=== PATIENT | male | born 1950 | race Caucasian/White ===

== ENCOUNTER 2017-11-29 05:56 | Day surgery (SDC) | payer MEDICARE, OTHER ==
[2017-11-29] MEDS ORDERED: Midazolam 1 MG/ML 2 ML SDV IV ONE ×5 (05:57→07:06)
[2017-11-29] MEDS ORDERED: fentaNYL 100 MCG/2 ML SDV IV ONE ×3 (05:57→06:55)
[2017-11-29] MEDS ORDERED: Sodium Chloride 0.9% 10 ML Syringe FLUSH PRN (06:00)
[2017-11-29] MEDS ORDERED: Dextrose 5%-0.45% NaCl 1,000 ML IV SCH (06:00)
[2017-11-29] MEDS ORDERED: fentaNYL 100 MCG/2 ML SDV ONE (06:12)
[2017-11-29] MEDS ORDERED: Midazolam 1 MG/ML 2 ML SDV ONE (06:12)
--- NOTE | 2017-11-29 13:12 | OR ---
DATE: 11/29/2017 PROCEDURE: Total colonoscopy and cold snare polypectomy. INSTRUMENT USED: CF-H180AL Olympus video colonoscope. Olympus distal detachment device. PREMEDICATIONS: Fentanyl 100 mcg intravenous and Versed 3 mg intravenous. Nasal O2 cannula. The procedure was done under pulse oximetry, BP recording, and vp biology. INDICATION: The patient with previous colonic tubular adenoma. Surveillance colonoscopic examination is done for detection of any polypoid lesions and removal, endoscopic hemostasis therapy if needed. DESCRIPTION OF PROCEDURE: Initial rectal exam was unremarkable. Rigid anoscopy showed diminutive benign-appearing polyp. The colonoscope was passed with ease. Photograph was taken of the distal rectum showing diminutive polyp, cold snare polypectomy was done, the tissue was retrieved and sent for histopathology. Numerous scattered diverticula were noted in the distal left colon along with deformity. The scope was passed with ease up to the ileocecal area, photographs were taken of the normal-appearing cecum identified by landmarks of appendiceal orifice and double-bulged ileocecal folds. No bleeding was noted from any of the visualized areas at the commencement of the examination. No stricture. No vascular ectasia. No large isolated ulcerations seen. No evidence of diffuse inflammatory bowel disease in the form of friability, contact bleeding, or ulcerations. Probing the proximal sides of folds and flexures, using adequate distention and clearing of the stool material, withdrawal of the scope was made, cecum to rectum time over 6 minutes. No bleeding was noted from any of the visualized areas at the completion of the examination IMPRESSION: 1. Diminutive rectal polyp. 2. Diverticulosis. The patient tolerated the procedure well. [facility] /[id number]
== END 2017-11-29 09:00 | disposition home or self-care (01) ==
LOC: DL.ENDO 05:56
PROVIDERS: ATTEND Internal Medicine Gastroenterology
DX: Z12.11 Encounter for screening for malignant neoplasm of colon (principal); D12.8 Benign neoplasm of rectum; K57.30 Diverticulosis of large intestine without perforation or abscess without bleeding; E66.09 Other obesity due to excess calories; E78.5 Hyperlipidemia, unspecified; I10 Essential (primary) hypertension; L40.9 Psoriasis, unspecified; Z98.890 Other specified postprocedural states; Z86.010 Personal history of colon polyps; M19.90 Unspecified osteoarthritis, unspecified site
CPT/HCPCS: J2250; J3010; J7042

== ENCOUNTER 2021-02-22 20:29 | Emergency (ER) | payer MEDICARE, OTHER ==
--- NOTE | 2021-02-22 21:27 | EDM.PDOC ---
ED HPI GENERAL MEDICAL PROBLEM - General Chief Complaint: Gastrointestinal Problem Stated Complaint: DIARRHEA,DEHYDRATED Time Seen by Provider: 02/22/21 21:26 Source of Information: Reports: Patient, RN History Limitations: Reports: No Limitations - History of Present Illness INITIAL COMMENTS - FREE TEXT/NARRATIVE: diarrhea 3-4 times per day since Tuesday. Thinks ate bad hamburger, Denied fever chills. No pain no vomiting or nausea. No blood in stool. No abdominal pain or cramping. appetite decreased - Related Data Allergies Allergy/AdvReac Type Severity Reaction Status Date / Time No Known Allergies Allergy Verified 02/22/21 20:42 Home Meds: Home Meds Aspirin [Halfprin] 81 mg PO DAILY 11/24/17 [History] Calcium Carbonate 600 mg PO DAILY 11/24/17 [History] Levothyroxine [Synthroid] 100 mcg PO DAILY 11/24/17 [History] Multivit-Min/Iron Fum/Folic AC [Hngcr-Wfefqcu-Kavxvkyu Tablet] 1 tab PO DAILY 11/24/17 [History] [place]-3/DHA/Epa/Fish Oil [[place]-3 Fish Oil 1,000 MG Sfgl] 1,000 mg PO DAILY 11/24/17 [History] Simvastatin [Zocor] 40 mg PO BEDTIME 11/24/17 [History] Hydrocortisone [Cortizone-10] 1 gm TOP ASDIRECTED PRN 02/22/21 [History] Past Medical History HEENT History: Reports: Impaired Vision, Other (See Below) Other HEENT History: WEARS CORRECTIVE LENS Cardiovascular History: Reports: High Cholesterol, Hypertension Respiratory History: Reports: None Gastrointestinal History: Reports: Colon Polyp, Diverticulosis, Other (See Below) Other Gastrointestinal History: HX OF INGUINAL HERNIA. UMBILICAL HERNIA Genitourinary History: Reports: Other (See Below) Other Genitourinary History: TESTICULAR SWELLING Musculoskeletal History: Reports: Arthritis Neurological History: Reports: Concussion, Other (See Below) Other Neuro History: S/P POST PITUITARY MACROADENOMA SURGERY Psychiatric History: Reports: None Endocrine/Metabolic History: Reports: Obesity/BMI 30+ Hematologic History: Reports: None Immunologic History: Reports: None Oncologic (Cancer) History: Reports: None Dermatologic History: Reports: Eczema, Psoriasis - Infectious Disease History Infectious Disease History: Reports: Chicken Pox - Past Surgical History Head Surgeries/Procedures: Reports: None HEENT Surgical History: Reports: Other (See Below) Other HEENT Surgeries/Procedures: PITUITARY TUMOR REMOVAL Cardiovascular Surgical History: Reports: None Respiratory Surgical History: Reports: None GI Surgical History: Reports: Colonoscopy, Hernia, Inguinal, Other (See Below) Other GI Surgeries/Procedures: STOMACH PUMP IN FOR 14 DAYS IN 1988 Male Surgical History: Reports: Other (See Below) Other Male Surgeries/Procedures: S/P CYSTOURETHROSCOPY Endocrine Surgical History: Reports: Other (See Below) Other Endocrine Surgeries/Procedures: PITUITARY TUMOR REMOVED IN 2007 Neurological Surgical History: Reports: None Musculoskeletal Surgical History: Reports: None Oncologic Surgical History: Reports: None Dermatological Surgical History: Reports: None Social & Family History - Family History Family Medical History: No Pertinent Family History - Tobacco Use Tobacco Use Status *Q: Former Tobacco User Years of Tobacco use: 20 Packs/Tins Daily: 1.5 Used Tobacco, but Quit: Yes Month/Year Tobacco Last Used: 1988 - Caffeine Use Caffeine Use: Reports: Coffee Other Caffeine Use: AVERAGE OF 8 CUPS DAILY IN THE AM - Recreational Drug Use Recreational Drug Use: No ED ROS GENERAL - Review of Systems Review Of Systems: Comprehensive ROS is negative, except as noted in HPI. ED EXAM, GI/ABD - Physical Exam Exam: See Below Exam Limited By: No Limitations General Appearance: Alert, No Apparent Distress Ears: Normal TMs Nose: Normal Inspection Throat/Mouth: Normal Inspection Head: Atraumatic, Normocephalic Neck: Normal Inspection Respiratory/Chest: No Respiratory Distress, Lungs Clear, Normal Breath Sounds Cardiovascular: Regular Rate, Rhythm GI/Abdominal Exam: Normal Bowel Sounds, Soft, Guarding, Rigid, Rebound, Tender, Abnormal Bowel Sounds (hyperactive). No: Distended Back Exam: Normal Inspection Extremities: Normal Inspection, Normal Range of Motion Neurological: Alert, Oriented, Normal Cognition Psychiatric: Normal Affect, Flat Affect Skin Exam: Warm, Normal Color, Rash (eczematous patches ) Course - Vital Signs Last Recorded V/S: Last Vital Signs Temp 96.9 F 02/22/21 23:08 Pulse 70 02/22/21 23:08 Resp 16 02/22/21 23:08 BP 100/50 L 02/22/21 23:08 Pulse Ox 99 02/22/21 23:08 - Orders/Labs/Meds Labs: Laboratory Tests 02/22/21 02/22/21 Range/Units 21:50 21:50 WBC 4.0 L (5.0-10.0) 10^3/uL RBC 5.26 (4.6-6.2) 10^6/uL Hgb 15.2 (14.0-18.0) g/dL Hct 45.7 (40.0-54.0) % MCV 86.9 (80-100) fL MCH 28.9 (27.0-34.0) pg MCHC 33.3 (33.0-35.0) g/dL Plt Count 105 L (150-450) 10^3/uL Neut % (Auto) 49.6 (42.2-75.2) % Lymph % (Auto) 37.6 (20.5-50.1) % [place] % (Auto) 12.4 H (2-8) % Eos % (Auto) 0.2 L (1.0-3.0) % Baso % (Auto) 0.2 (0.0-1.0) % Sodium 135 L (136-145) mmol/L Potassium 3.5 (3.5-5.1) mmol/L Chloride 98 (98-107) mmol/L Carbon Dioxide 27 (21-32) mmol/L Anion Gap 13.5 H (7-13) mEq/L BUN 30 H (7-18) mg/dL Creatinine 1.62 H (0.70-1.30) mg/dL Est Cr Clr Drug Dosing 33.17 mL/min Estimated GFR (MDRD) 42 BUN/Creatinine Ratio 18.5 (No establ ref range) Glucose 86 (70-99) mg/dL Calcium 8.0 L (8.5-10.1) mg/dL Total Bilirubin 0.6 (0.2-1.0) mg/dL AST 60 H (15-37) U/L ALT 61 (16-63) U/L Alkaline Phosphatase 43 L (46-116) U/L Total Protein 6.4 (6.4-8.2) g/dL Albumin 3.2 L (3.4-5.0) g/dL Globulin 3.2 Albumin/Globulin Ratio 1.00 Amylase 59 (25-115) U/L Lipase 368 (73-393) U/L Meds: Medications Discontinued Medications Generic Name Dose Route Start Last Admin Trade Name Freq PRN Reason Stop Dose Admin Sodium Chloride 1,000 mls @ 999 mls/hr 02/22/21 21:39 02/22/21 21:51 Normal Saline IV 02/22/21 22:39 999 mls/hr .BOLUS ONE Administration Departure - Departure Time of Disposition: 22:58 Disposition: Home, Self-Care 01 Condition: Good Clinical Impression: Diarrhea Qualifiers: Diarrhea type: unspecified type Qualified Code(s): R19.7 - Diarrhea, unspecified - Discharge Information *PRESCRIPTION DRUG MONITORING PROGRAM REVIEWED*: No *COPY OF PRESCRIPTION DRUG MONITORING REPORT IN PATIENT ERICKSON: No Instructions: Diarrhea, Adult, [id number] Forms: ED Department Discharge Additional Instructions: immodium per label instructions clinic follow up this week if not improving bland diet low fat continue home medications urgent follow up fever, severe pain, dizziness blood in stool Sepsis Event Note (ED) - Evaluation Sepsis Screening Result: No Definite Risk - Focused Exam Vital Signs: Vital Signs Temp Pulse Resp BP Pulse Ox 02/22/21 23:08 96.9 F 70 16 100/50 L 99 02/22/21 20:54 62 16 107/69 98 02/22/21 20:37 97.6 F 73 16 111/95 H 98
[2021-02-22] MEDS ORDERED: Sodium Chloride 0.9% 1,000 ML IV ONE (21:39)
[2021-02-22 22:20] LABS: ANION GAP 13.5 mEq/L (7-13)
== END 2021-02-22 23:10 | disposition home or self-care (01) ==
LOC: DL.ED 20:29
DX: R19.7 Diarrhea, unspecified (principal); E78.00 Pure hypercholesterolemia, unspecified; I10 Essential (primary) hypertension; Z79.82 Long term (current) use of aspirin; Z79.899 Other long term (current) drug therapy; Z87.891 Personal history of nicotine dependence
CPT/HCPCS: 36415; 80053; 82150; 83690; 85025; 99284; J7030

== ENCOUNTER 2021-03-17 05:27 | Day surgery (SDC) | payer MEDICARE, OTHER ==
[2021-03-17] MEDS ORDERED: fentaNYL 100 MCG/2 ML SDV IV ONE ×3 (05:28→06:37)
[2021-03-17] MEDS ORDERED: Midazolam 1 MG/ML 2 ML SDV IV ONE ×3 (05:28→06:38)
[2021-03-17] MEDS ORDERED: Midazolam 1 MG/ML 2 ML SDV ONE (06:09)
[2021-03-17] MEDS ORDERED: fentaNYL 100 MCG/2 ML SDV ONE (06:09)
[2021-03-17] MEDS ORDERED: Dextrose 5%-0.45% NaCl 1,000 ML IV SCH (06:30)
--- NOTE | 2021-03-17 07:31 | OR ---
DATE: 03/17/2021 PROCEDURE: Esophagogastroduodenoscopy and multiple pinch biopsies. INSTRUMENT USED: GIF-HQ190 Olympus video panendoscope. PREMEDICATIONS: No oral or topical anesthesia used. Fentanyl 100 mcg intravenous, Versed 2 mg intravenous. Nasal O2 cannula. The procedure was done under pulse oximetry, BP recording, and cardiac rehabilitation specialist. INDICATION: The patient with persistent dysphagia, unexplained and not responsive to medical measures, on acid suppressant. Esophagogastroduodenoscopy is performed for detection of any active erosive lesions, Huitron esophagus and/or malignancy also under consideration, H pylori status to be determined, esophageal dilatations if indicated, endoscopic hemostasis therapy if needed. DESCRIPTION OF PROCEDURE: The scope was passed with ease. Adequate visualization of the esophagus was made from proximal to distal areas. No upper esophageal lesions identified. No uphill or downhill esophageal varices. No Sarah-Carrero tear. Grade D erosive changes were noted by [place] criteria. Sliding hiatal hernia was noted. There was some stricture of the distal esophagus, but the tip of the scope was passed with ease to visualize the gastric mucosa. No esophageal polyp or tumor mass identified. No proximal gastric varices noted. Gastric fundus examination by retroflexion showed no polypoid lesions. No gastric ulcer, malignant mass, or vascular ectasia identified. Scattered gastric antral erosions were noted without bleeding from them. Duodenal bulb showed diffuse erythema and prominent benign-appearing folds. Visualized second part of the duodenum was unremarkable. Multiple pinch biopsies were taken from the gastric antrum and proximal body and sent for PyloriTek test for H pylori, and if negative in an hour, the tissues will be sent for histopathology. No bleeding was noted from any of the visualized areas at the completion of examination. Photographs were taken of the duodenal bulb, gastric antrum, fundus, and distal esophagus. IMPRESSION: 1. Grade D gastroesophageal reflux disease. 2. Peptic esophageal stricture. 3. Sliding hiatal hernia. 4. Gastric antral erosions. The patient tolerated the procedure well. [facility] /[id number]
--- NOTE | 2021-03-17 07:31 | OR ---
DATE: 03/17/2021 PROCEDURE DONE: Esophageal dilatation. INSTRUMENT USED: [place] bougie esophageal dilator, Citizen Of [place] size 48. PREMEDICATIONS: Done after EGD. INDICATION: Peptic esophageal stricture. PROCEDURE IN DETAIL: Esophageal dilatation was done with ease using bougie dilator, [place] size 48. No blood was noted at dilated tip after completion. IMPRESSION: Peptic esophageal stricture. The patient tolerated the procedure well. [facility] /[id number]
== END 2021-03-17 08:53 | disposition home or self-care (01) ==
LOC: DL.ENDO 05:27
PROVIDERS: ATTEND Internal Medicine Gastroenterology
DX: K29.50 Unspecified chronic gastritis without bleeding (principal); K22.2 Esophageal obstruction; K44.9 Diaphragmatic hernia without obstruction or gangrene; K21.9 Gastro-esophageal reflux disease without esophagitis; K25.9 Gastric ulcer, unspecified as acute or chronic, without hemorrhage or perforation; I10 Essential (primary) hypertension; E78.5 Hyperlipidemia, unspecified; D35.2 Benign neoplasm of pituitary gland; L40.9 Psoriasis, unspecified; H91.90 Unspecified hearing loss, unspecified ear; A09 Infectious gastroenteritis and colitis, unspecified
CPT/HCPCS: 87077; 88305; 88342; J2250; J3010; J7042

== ENCOUNTER 2021-06-09 05:58 | Day surgery (SDC) | payer MEDICARE, OTHER ==
[~2021-06-09 05:58] MED LIST: Midazolam 1 MG/ML 2 ML SDV ONE; fentaNYL 100 MCG/2 ML SDV ONE
[2021-06-09] MEDS ORDERED: fentaNYL 100 MCG/2 ML SDV IV ONE ×3 (05:59→07:23)
[2021-06-09] MEDS ORDERED: Midazolam 1 MG/ML 2 ML SDV IV ONE ×3 (05:59→07:24)
[2021-06-09] MEDS ORDERED: Dextrose 5%-0.45% NaCl 1,000 ML IV SCH (06:00)
--- NOTE | 2021-06-09 08:14 | OR ---
DATE: 06/09/2021 PROCEDURES: Esophagogastroduodenoscopy, NBI, and multiple pinch biopsies. INSTRUMENT USED: GIF-HQ190 Olympus video panendoscope. PREMEDICATIONS: No oral or topical anesthesia used. Fentanyl 100 mcg intravenous, Versed 2 mg intravenous. The procedure was done under pulse oximetry, BP recording, and quality assurance monitor final. INDICATIONS: Patient with previous grade D GERD, treated with PPI. Followup esophagogastroduodenoscopy is done for review of healing of esophageal ulcers and rule out Huitron's esophagus and or malignancy,endoscopic hemostasis therapy if needed. DESCRIPTION OF PROCEDURE: The scope was passed with ease. Adequate visualization of the esophagus was made from proximal to distal areas. No upper esophageal lesions identified. No distal esophageal stricture. No uphill or downhill esophageal varices. No Sarah-Carrero tear. No evidence of erosive esophagitis by [place] criteria. No esophageal polyp or tumor mass identified. Z-line was seen at around 38 cm distal to the oral verge, NBI views were obtained, four-quadrant biopsies were obtained from the pink columnar epithelium at Z-line and sent for any histopathologic evidence of intestinal metaplasia. No proximal gastric varices noted. Gastric fundus examination on retroflexion showed no polypoid lesions. No gastric ulcer, malignant mass, or vascular ectasia identified. Duodenal bulb showed no ulcer visualized, second part of the duodenum was unremarkable. No bleeding was noted from any of the visualized areas at the completion of examination. Photographs were taken of the distal esophagus. IMPRESSION: Columnar-lined distal esophagus. The patient tolerated the procedure well. [facility] /[id number] [facility]
== END 2021-06-09 09:15 | disposition home or self-care (01) ==
LOC: DL.ENDO 05:58
PROVIDERS: ATTEND Internal Medicine Gastroenterology
DX: K31.89 Other diseases of stomach and duodenum (principal); K21.00 Gastro-esophageal reflux disease with esophagitis, without bleeding; E66.09 Other obesity due to excess calories; I10 Essential (primary) hypertension; E78.00 Pure hypercholesterolemia, unspecified; Z98.890 Other specified postprocedural states; Z87.891 Personal history of nicotine dependence; Z01.812 Encounter for preprocedural laboratory examination; Z20.822 Contact with and (suspected) exposure to COVID-19
CPT/HCPCS: 43239; J2250; J3010; J7042; U0002; 88305

== ENCOUNTER 2025-03-14 06:24 | Day surgery (SDC) | payer MEDICARE, OTHER ==
[~2025-03-14 06:24] MED LIST changes: -Midazolam 1 MG/ML 2 ML SDV ONE; +Propofol 200 MG/20 ML SDV ONE; -fentaNYL 100 MCG/2 ML SDV ONE
[2025-03-14] MEDS ORDERED: Propofol 200 MG/20 ML SDV IV ONE (06:25)
[2025-03-14] MEDS ORDERED: Lactated Ringers 1,000 ML IV ONE (06:25)
[2025-03-14] MEDS: Lactated Ringers 1,000 ML IV SCH (06:49)
== END 2025-03-14 08:45 | disposition home or self-care (01) ==
LOC: DL.ENDO 06:24
PROVIDERS: ATTEND Internal Medicine Gastroenterology
DX: Z12.11 Encounter for screening for malignant neoplasm of colon (principal); K57.30 Diverticulosis of large intestine without perforation or abscess without bleeding; E78.00 Pure hypercholesterolemia, unspecified; K21.9 Gastro-esophageal reflux disease without esophagitis; D35.2 Benign neoplasm of pituitary gland; Z79.899 Other long term (current) drug therapy
CPT/HCPCS: J2003; J2704; J7120